=== PATIENT | female | born 1970 | race Caucasian/White ===

== ENCOUNTER → 2018-02-17 15:10 | Outpatient (CLI) | payer BC, SELFPAY ==
[2018-02-17 18:33] LABS: Absolute Lymphocyte Count 2.59 X10^3/ul (0.83-4.51); Absolute Neutrophil Count 5.1 X10^3/uL (2.0-7.7); Basophil# 0.07 X10^3/uL; Basophil% 0.8 % (0-1); Eosinophil# 0.35 X10^3/uL; Hematocrit 41.3 % (37-47); Hemoglobin 14.3 g/dl (12.0-15.0); Lymphocyte # 2.59 X10^3/ul (4.0); Lymphocyte % 29.8 % (19-41); Mean Corp Hgb Conc 34.6 g/gl (32-36); Mean Corpuscular Hgb 28.6 pg (27.0-32.0); Mean Corpuscular Volume 82.6 fL (81-99); Mean Platelet Vol. 10.9 fl (6.2-12.0); Monocyte# 0.53 X10^3/uL; Monocyte% 6.1 % (0-10); Neutrophil # 5.14 X10^3/uL (2.7-7.7); Neutrophil % 59.1 % (47-70); Platelet Count 280 K/mm3 (150-450); RBC Distribution Width CV 13.8 % (11.6-14.6); RBC Distribution Width SD 41.2 fl (35.1-43.9); White Blood Count 8.7 K/mm3 (4.4-11.0)
[2018-02-17 18:34] LABS: ALB/GLOB Ratio 1.3 RATIO (0.9-2.4); AST(SGOT) 21 U/L (15-37); Alanine Aminotransfer ALT/SGPT 39 U/L (13-56); Albumin, Serum 4.1 g/dL (3.2-5.0); Alkaline Phosphatase 55 U/L (45-117); Anion Gap 6 (5-15); BUN 16 mg/dL (7-18); BUN/Creat Ratio 20.8 RATIO (10-20); Calcium,Total 8.8 mg/dL (8.5-10.1); Chloride 105 mmol/L (98-107); Creatinine, Serum 0.77 mg/dL (0.55-1.02); EST Glomerular Filtration Rate 84 mL/min (>60); Est Glom Filt Rate - Afr Amer 102 mL/min (>60); Globulin 3.2 g/dL (2.2-4.2); Glucose 91 mg/dL (74-106); Protein, Total 7.3 g/dL (6.4-8.2); Sodium Level 142 mmol/L (136-145)
[2018-02-17 18:52] LABS: POSITIVE COUNT NO; POSITIVE DIFFERENTIAL NO; POSITIVE MORPHOLOGY NO
== END ==
PROVIDERS: Family Provider Pediatrics; PCP Pediatrics; Visit Provider Internal Medicine Rheumatology
DX: M06.4 Inflammatory polyarthropathy (principal); M32.9 Systemic lupus erythematosus, unspecified; Z79.899 Other long term (current) drug therapy; M79.7 Fibromyalgia; M72.2 Plantar fascial fibromatosis; K22.70 Barrett's esophagus without dysplasia; G43.809 Other migraine, not intractable, without status migrainosus; N80.9 Endometriosis, unspecified
CPT/HCPCS: 36415; 80053; 85025

== ENCOUNTER → 2018-12-14 10:52 | Outpatient (CLI) | payer BC, SELFPAY ==
[2018-12-14 12:23] LABS: Color, Urine Yellow (Yellow); Glucose, Dipstick Normal (Normal); Ketone-Dipstick Negative (Negative); Leukocyte Esterase-Dipstick Negative /ul (Negative); Nitrite-Dipstick Negative (Negative); Occult Blood-Urine Negative /ul (Negative); Protein-Dipstick Negative (Negative); Urine Bilirubin Dipstick Negative (Negative); Urine Clarity Sl. Cloudy (Clear); Urine Urobilinogen Normal (Normal); Urine pH 6.5 (5.0 - 8.0)
[2018-12-14 12:51] LABS: Protein, Urine (Random) < 6.0 mg/dL (<11.9)
[2018-12-15 10:44] LABS: Complement C3 152 mg/dL (82-167)
[2018-12-16 13:00] LABS: Anti-dsDNA Ab 2 IU/mL (0-9)
== END ==
PROVIDERS: Family Provider Pediatrics; PCP Pediatrics; Referring Provider Internal Medicine Rheumatology; Visit Provider Internal Medicine Rheumatology
DX: M06.4 Inflammatory polyarthropathy (principal); M32.9 Systemic lupus erythematosus, unspecified; M79.7 Fibromyalgia; M72.2 Plantar fascial fibromatosis; K22.70 Barrett's esophagus without dysplasia; G43.809 Other migraine, not intractable, without status migrainosus; N80.9 Endometriosis, unspecified; Z79.899 Other long term (current) drug therapy
CPT/HCPCS: 36415; 81002; 82570; 84156; 86160; 86225

== ENCOUNTER → 2019-02-14 | Outpatient (CLI) | payer BC, SELFPAY ==
[2019-02-14 13:50] LABS: Absolute Lymphocyte Count 2.43 X10^3/ul (0.83-4.51); Absolute Neutrophil Count 5.8 X10^3/uL (2.0-7.7); Basophil# 0.07 X10^3/uL; Basophil% 0.8 % (0-1); Eosinophil# 0.28 X10^3/uL; Eosinophils% 3.1 % (0-5); Hematocrit 44.5 % (37-47); Hemoglobin 15.4 g/dl (12.0-15.0); Lymphocyte # 2.43 X10^3/ul (4.0); Lymphocyte % 26.5 % (19-41); Mean Corp Hgb Conc 34.6 g/gl (32-36); Mean Corpuscular Hgb 27.9 pg (27.0-32.0); Mean Corpuscular Volume 80.8 fL (81-99); Mean Platelet Vol. 9.9 fl (6.2-12.0); Monocyte# 0.57 X10^3/uL; Monocyte% 6.2 % (0-10); Neutrophil # 5.79 X10^3/uL (2.7-7.7); Neutrophil % 63.2 % (47-70); Platelet Count 308 K/mm3 (150-450); RBC Distribution Width CV 13.3 % (11.6-14.6); RBC Distribution Width SD 38.9 fl (35.1-43.9); Red Blood Count 5.51 M/mm3 (4.2-5.4); White Blood Count 9.2 K/mm3 (4.4-11.0)
[2019-02-14 13:51] LABS: POSITIVE COUNT NO; POSITIVE DIFFERENTIAL NO; POSITIVE MORPHOLOGY NO
[2019-02-14 14:14] LABS: ALB/GLOB Ratio 1.2 RATIO (0.9-2.4); AST(SGOT) 23 U/L (15-37); Alanine Aminotransfer ALT/SGPT 38 U/L (13-56); Albumin, Serum 4.2 g/dL (3.2-5.0); Alkaline Phosphatase 59 U/L (45-117); Anion Gap 7 (5-15); BUN 21 mg/dL (7-18); BUN/Creat Ratio 22.2 RATIO (10-20); Calcium,Total 9.8 mg/dL (8.5-10.1); Chloride 103 mmol/L (98-107); Creatinine, Serum 0.94 mg/dL (0.55-1.02); EST Glomerular Filtration Rate 66 mL/min (>60); Est Glom Filt Rate - Afr Amer 80 mL/min (>60); Globulin 3.5 g/dL (2.2-4.2); Glucose 105 mg/dL (74-106); Potassium 3.8 mmol/L (3.5-5.1); Protein, Total 7.7 g/dL (6.4-8.2); Sodium Level 142 mmol/L (136-145)
== END | disposition home or self-care (01) ==
LOC: MTLAB 12:51
PROVIDERS: Family Provider Pediatrics; PCP Pediatrics; Referring Provider Internal Medicine Rheumatology; Visit Provider Internal Medicine Rheumatology
DX: M06.4 Inflammatory polyarthropathy (principal); M32.9 Systemic lupus erythematosus, unspecified; Z79.899 Other long term (current) drug therapy; M79.7 Fibromyalgia; M72.2 Plantar fascial fibromatosis; K22.70 Barrett's esophagus without dysplasia; G43.809 Other migraine, not intractable, without status migrainosus; N80.9 Endometriosis, unspecified
CPT/HCPCS: 36415; 80053; 85025

== ENCOUNTER → 2019-06-06 | Outpatient (CLI) | payer BC, SELFPAY ==
[2019-06-06 14:04] LABS: Absolute Lymphocyte Count 2.37 X10^3/uL (0.83-4.51); Absolute Neutrophil Count 5.3 X10^3/uL (2.0-7.7); Basophil# 0.07 X10^3/uL; Basophil% 0.8 % (0-1); Eosinophil# 0.33 X10^3/uL; Eosinophils% 3.8 % (0-5); Hematocrit 44.3 % (37-47); Hemoglobin 14.9 g/dL (12.0-15.0); Lymphocyte # 2.37 X10^3/ul (4.0); Lymphocyte % 27.1 % (19-41); Mean Corp Hgb Conc 33.6 g/dL (32-36); Mean Corpuscular Hgb 28.2 pg (27.0-32.0); Mean Corpuscular Volume 83.7 fL (81-99); Monocyte# 0.69 X10^3/uL; Monocyte% 7.9 % (0-10); NRBC Flagged by Analyzer 0 % (0-5); Neutrophil # 5.27 X10^3/uL (2.7-7.7); Neutrophil % 60.1 % (47-70); Platelet Count 297 K/mm3 (150-450); RBC Distribution Width CV 12.7 % (11.6-14.6); RBC Distribution Width SD 38.5 fl (35.1-43.9); Red Blood Count 5.29 M/mm3 (4.2-5.4); White Blood Count 8.8 K/mm3 (4.4-11.0)
[2019-06-06 14:37] LABS: ALB/GLOB Ratio 1.1 RATIO (0.9-2.4); AST(SGOT) 18 U/L (15-37); Alanine Aminotransfer ALT/SGPT 33 U/L (13-56); Alkaline Phosphatase 56 U/L (45-117); Anion Gap 5 (5-15); BUN 16 mg/dL (7-18); BUN/Creat Ratio 17.9 RATIO (10-20); Calcium,Total 8.9 mg/dL (8.5-10.1); Chloride 108 mmol/L (98-107); Creatinine, Serum 0.89 mg/dL (0.55-1.02); EST Glomerular Filtration Rate 71 mL/min (>60); Est Glom Filt Rate - Afr Amer 86 mL/min (>60); Globulin 3.6 g/dL (2.2-4.2); Glucose 89 mg/dL (74-106); Potassium 3.9 mmol/L (3.5-5.1); Protein, Total 7.6 g/dL (6.4-8.2); Sodium Level 143 mmol/L (136-145)
== END | disposition home or self-care (01) ==
LOC: MTLAB 12:49
PROVIDERS: Family Provider Pediatrics; PCP Pediatrics; Referring Provider Internal Medicine Rheumatology; Visit Provider Internal Medicine Rheumatology
DX: M06.4 Inflammatory polyarthropathy (principal); M32.9 Systemic lupus erythematosus, unspecified; Z79.899 Other long term (current) drug therapy; M79.7 Fibromyalgia; M72.2 Plantar fascial fibromatosis; K22.70 Barrett's esophagus without dysplasia; G43.809 Other migraine, not intractable, without status migrainosus; N80.9 Endometriosis, unspecified
CPT/HCPCS: 36415; 80053; 85025

== ENCOUNTER → 2020-02-07 12:01 | Outpatient (CLI) | payer BC, SELFPAY ==
[2020-02-07 15:37] LABS: Absolute Lymphocyte Count 2.27 X10^3/uL (0.83-4.51); Absolute Neutrophil Count 4.2 X10^3/uL (2.0-7.7); Basophil# 0.09 X10^3/uL; Basophil% 1.2 % (0-1); Eosinophil# 0.33 X10^3/uL; Eosinophils% 4.4 % (0-5); Hematocrit 42.8 % (37-47); Hemoglobin 14.1 g/dL (12.0-15.0); Lymphocyte # 2.27 X10^3/ul (4.0); Lymphocyte % 30.1 % (19-41); Mean Corp Hgb Conc 32.9 g/dL (32-36); Mean Corpuscular Volume 81.8 fL (81-99); Mean Platelet Vol. 10.6 fl (6.2-12.0); Monocyte# 0.63 X10^3/uL; Monocyte% 8.3 % (0-10); NRBC Flagged by Analyzer 0 % (0-5); Neutrophil # 4.21 X10^3/uL (2.7-7.7); Neutrophil % 55.7 % (47-70); Platelet Count 284 K/mm3 (150-450); RBC Distribution Width CV 13.5 % (11.6-14.6); RBC Distribution Width SD 40.2 fl (35.1-43.9); Red Blood Count 5.23 M/mm3 (4.2-5.4); White Blood Count 7.6 K/mm3 (4.4-11.0)
[2020-02-07 15:45] LABS: ALB/GLOB Ratio 1.1 RATIO (0.9-2.4); AST(SGOT) 17 U/L (15-37); Alanine Aminotransfer ALT/SGPT 34 U/L (13-56); Albumin, Serum 3.8 g/dL (3.2-5.0); Alkaline Phosphatase 55 U/L (45-117); Anion Gap 2 (5-15); BUN 16 mg/dL (7-18); Calcium,Total 8.9 mg/dL (8.5-10.1); Chloride 105 mmol/L (98-107); Creatinine, Serum 0.84 mg/dL (0.55-1.02); EST Glomerular Filtration Rate 75 mL/min (>60); Est Glom Filt Rate - Afr Amer 91 mL/min (>60); Globulin 3.5 g/dL (2.2-4.2); Glucose 70 mg/dL (74-106); Potassium 4.1 mmol/L (3.5-5.1); Protein, Total 7.3 g/dL (6.4-8.2); Sodium Level 139 mmol/L (136-145)
== END ==
PROVIDERS: PCP Pediatrics; Referring Provider Internal Medicine Rheumatology; Visit Provider Internal Medicine Rheumatology
DX: M06.4 Inflammatory polyarthropathy (principal); M32.9 Systemic lupus erythematosus, unspecified; Z79.899 Other long term (current) drug therapy; M79.7 Fibromyalgia; M72.2 Plantar fascial fibromatosis; K22.70 Barrett's esophagus without dysplasia; G43.809 Other migraine, not intractable, without status migrainosus; N80.9 Endometriosis, unspecified
CPT/HCPCS: 36415; 80053; 85025

== ENCOUNTER → 2020-05-24 09:48 | Outpatient (CLI) | payer BC, SELFPAY ==
[2020-05-24 12:31] LABS: Color, Urine Straw (Yellow); Glucose, Dipstick Normal (Normal); Ketone-Dipstick Negative (Negative); Leukocyte Esterase-Dipstick Negative /ul (Negative); Nitrite-Dipstick Negative (Negative); Occult Blood-Urine Negative /ul (Negative); Protein-Dipstick Negative (Negative); Specific Gravity, Urine 1.005 (1.002-1.030); Urine Bilirubin Dipstick Negative (Negative); Urine Clarity Clear (Clear); Urine Urobilinogen Normal (Normal)
[2020-05-24 12:34] LABS: Absolute Lymphocyte Count 2.33 X10^3/uL (0.83-4.51); Absolute Neutrophil Count 4.7 X10^3/uL (2.0-7.7); Basophil# 0.08 X10^3/uL; Eosinophil# 0.32 X10^3/uL; Eosinophils% 3.9 % (0-5); Hematocrit 43.5 % (37-47); Hemoglobin 14.2 g/dL (12.0-15.0); Lymphocyte # 2.33 X10^3/ul (4.0); Lymphocyte % 28.7 % (19-41); Mean Corp Hgb Conc 32.6 g/dL (32-36); Mean Corpuscular Hgb 27.6 pg (27.0-32.0); Mean Corpuscular Volume 84.5 fL (81-99); Mean Platelet Vol. 9.9 fl (6.2-12.0); Monocyte# 0.66 X10^3/uL; Monocyte% 8.1 % (0-10); NRBC Flagged by Analyzer 0 % (0-5); Neutrophil % 57.8 % (47-70); Platelet Count 307 K/mm3 (150-450); RBC Distribution Width CV 12.8 % (11.6-14.6); RBC Distribution Width SD 39.5 fl (35.1-43.9); Red Blood Count 5.15 M/mm3 (4.2-5.4); White Blood Count 8.1 K/mm3 (4.4-11.0)
[2020-05-24 13:01] LABS: ALB/GLOB Ratio 1.1 RATIO (0.9-2.4); AST(SGOT) 19 U/L (15-37); Alanine Aminotransfer ALT/SGPT 33 U/L (13-56); Alkaline Phosphatase 61 U/L (45-117); Anion Gap 4 (5-15); BUN 14 mg/dL (7-18); BUN/Creat Ratio 15.9 RATIO (10-20); Calcium,Total 8.9 mg/dL (8.5-10.1); Chloride 104 mmol/L (98-107); Creatinine, Serum 0.88 mg/dL (0.55-1.02); EST Glomerular Filtration Rate 72 mL/min (>60); Est Glom Filt Rate - Afr Amer 87 mL/min (>60); Globulin 3.6 g/dL (2.2-4.2); Glucose 60 mg/dL (74-106); Potassium 3.9 mmol/L (3.5-5.1); Protein, Total 7.6 g/dL (6.4-8.2); Sodium Level 141 mmol/L (136-145)
[2020-05-24 13:54] LABS: Protein, Urine (Random) < 6.0 mg/dL (<11.9)
== END ==
PROVIDERS: PCP Pediatrics; Referring Provider Internal Medicine Rheumatology; Visit Provider Internal Medicine Rheumatology
DX: M06.4 Inflammatory polyarthropathy (principal); M32.9 Systemic lupus erythematosus, unspecified; Z79.899 Other long term (current) drug therapy; M79.7 Fibromyalgia; M72.2 Plantar fascial fibromatosis; K22.70 Barrett's esophagus without dysplasia; G43.809 Other migraine, not intractable, without status migrainosus; N80.9 Endometriosis, unspecified
CPT/HCPCS: 36415; 80053; 81002; 82570; 84156; 85025

== ENCOUNTER → 2020-08-16 10:06 | Outpatient (CLI) | payer BC, SELFPAY ==
[2020-08-16 12:20] LABS: Absolute Lymphocyte Count 1.66 X10^3/uL (0.83-4.51); Absolute Neutrophil Count 3.6 X10^3/uL (2.0-7.7); Basophil# 0.05 X10^3/uL; Basophil% 0.8 % (0-1); Eosinophil# 0.34 X10^3/uL; Eosinophils% 5.4 % (0-5); Hematocrit 42.8 % (37-47); Hemoglobin 14.3 g/dL (12.0-15.0); Lymphocyte # 1.66 X10^3/ul (4.0); Lymphocyte % 26.6 % (19-41); Mean Corp Hgb Conc 33.4 g/dL (32-36); Mean Corpuscular Volume 83.8 fL (81-99); Mean Platelet Vol. 10.1 fl (6.2-12.0); NRBC Flagged by Analyzer 0 % (0-5); Neutrophil % 57.8 % (47-70); Platelet Count 280 K/mm3 (150-450); RBC Distribution Width CV 12.9 % (11.6-14.6); RBC Distribution Width SD 39.3 fl (35.1-43.9); Red Blood Count 5.11 M/mm3 (4.2-5.4); White Blood Count 6.2 K/mm3 (4.4-11.0)
[2020-08-16 12:32] LABS: T3 Total - Triiodothyronine 1.15 ng/mL (0.6-1.81); Vitamin D,25 Hydroxy 32.5 ng/mL
[2020-08-16 12:35] LABS: AST(SGOT) 15 U/L (15-37); Alanine Aminotransfer ALT/SGPT 30 U/L (13-56); Albumin, Serum 3.9 g/dL (3.2-5.0); Alkaline Phosphatase 63 U/L (45-117); Bilirubin, Direct 0.13 mg/dL (0.00-0.30); Cholesterol 211 mg/dL (200); Globulin 3.5 g/dL (2.2-4.2); High Density Lipoprotein 53 mg/dL; Protein, Total 7.4 g/dL (6.4-8.2); T4 Free Direct 0.91 ng/dL (0.76-1.46); Thyroid Stim Hormone (TSH) 2.81 uIU/mL (0.358-3.74); Triglycerides 61 mg/dL; Very Low Density Lipoprotein 12 mg/dL (5-40)
== END ==
PROVIDERS: PCP Pediatrics; Referring Provider Pediatrics; Visit Provider Pediatrics
DX: Z00.00 Encounter for general adult medical examination without abnormal findings (principal); E03.9 Hypothyroidism, unspecified; E55.9 Vitamin D deficiency, unspecified; E78.5 Hyperlipidemia, unspecified; M06.4 Inflammatory polyarthropathy; M32.9 Systemic lupus erythematosus, unspecified; Z79.899 Other long term (current) drug therapy; M79.7 Fibromyalgia; M72.2 Plantar fascial fibromatosis; K22.70 Barrett's esophagus without dysplasia; G43.809 Other migraine, not intractable, without status migrainosus; N80.9 Endometriosis, unspecified
CPT/HCPCS: 80061; 80076; 82306; 84439; 84443; 84480; 85025

== ENCOUNTER → 2020-11-25 12:42 | Outpatient (CLI) | payer BC, SELFPAY ==
[2020-11-25 15:13] LABS: Absolute Lymphocyte Count 2.79 X10^3/uL (0.83-4.51); Absolute Neutrophil Count 4.3 X10^3/uL (2.0-7.7); Basophil# 0.11 X10^3/uL; Basophil% 1.3 % (0-1); Eosinophil# 0.63 X10^3/uL; Eosinophils% 7.4 % (0-5); Hematocrit 43.7 % (37-47); Hemoglobin 14.7 g/dL (12.0-15.0); Lymphocyte # 2.79 X10^3/ul (4.0); Lymphocyte % 32.7 % (19-41); Mean Corp Hgb Conc 33.6 g/dL (32-36); Mean Corpuscular Hgb 27.7 pg (27.0-32.0); Mean Corpuscular Volume 82.5 fL (81-99); Mean Platelet Vol. 10.2 fl (6.2-12.0); Monocyte# 0.65 X10^3/uL; Monocyte% 7.6 % (0-10); NRBC Flagged by Analyzer 0 % (0-5); Neutrophil # 4.31 X10^3/uL (2.7-7.7); Neutrophil % 50.6 % (47-70); Platelet Count 322 K/mm3 (150-450); RBC Distribution Width CV 12.9 % (11.6-14.6); RBC Distribution Width SD 38.7 fl (35.1-43.9); White Blood Count 8.5 K/mm3 (4.4-11.0)
[2020-11-25 15:17] LABS: Color, Urine Yellow (Yellow); Glucose, Dipstick Normal (Normal); Ketone-Dipstick Negative (Negative); Leukocyte Esterase-Dipstick Negative /ul (Negative); Nitrite-Dipstick Negative (Negative); Occult Blood-Urine Negative /ul (Negative); Protein-Dipstick Negative (Negative); Specific Gravity, Urine 1.005 (1.002-1.030); Urine Bilirubin Dipstick Negative (Negative); Urine Clarity Sl. Cloudy (Clear); Urine Urobilinogen Normal (Normal); Urine pH 6.5 (5.0 - 8.0)
[2020-11-25 15:42] LABS: Protein, Urine (Random) < 6.0 mg/dL (<11.9)
[2020-11-25 15:45] LABS: ALB/GLOB Ratio 1.1 RATIO (0.9-2.4); AST(SGOT) 22 U/L (15-37); Alanine Aminotransfer ALT/SGPT 41 U/L (13-56); Alkaline Phosphatase 75 U/L (45-117); Anion Gap 5 (5-15); BUN 15 mg/dL (7-18); BUN/Creat Ratio 16.8 RATIO (10-20); Calcium,Total 9.1 mg/dL (8.5-10.1); Chloride 103 mmol/L (98-107); Creatinine, Serum 0.89 mg/dL (0.55-1.02); EST Glomerular Filtration Rate 70 mL/min (>60); Est Glom Filt Rate - Afr Amer 85 mL/min (>60); Globulin 3.7 g/dL (2.2-4.2); Glucose 85 mg/dL (74-106); Protein, Total 7.7 g/dL (6.4-8.2); Sodium Level 140 mmol/L (136-145)
== END ==
PROVIDERS: PCP Pediatrics; Referring Provider Internal Medicine Rheumatology; Visit Provider Internal Medicine Rheumatology
DX: M06.4 Inflammatory polyarthropathy (principal); M32.9 Systemic lupus erythematosus, unspecified; Z79.899 Other long term (current) drug therapy; M79.7 Fibromyalgia; M72.2 Plantar fascial fibromatosis; K22.70 Barrett's esophagus without dysplasia; G43.809 Other migraine, not intractable, without status migrainosus; N80.9 Endometriosis, unspecified
CPT/HCPCS: 36415; 80053; 81002; 82570; 84156; 85025

== ENCOUNTER → 2021-05-20 16:50 | Outpatient (CLI) | payer BC, SELFPAY ==
[2021-05-20 17:51] LABS: Absolute Neutrophil Count 5.4 X10^3/uL (2.0-7.7); Basophil# 0.09 X10^3/uL; Basophil% 0.9 % (0-1); Eosinophil# 0.44 X10^3/uL; Eosinophils% 4.3 % (0-5); Hematocrit 43.3 % (37-47); Hemoglobin 14.3 g/dL (12.0-15.0); Lymphocyte % 33.5 % (19-41); Mean Corpuscular Hgb 27.4 pg (27.0-32.0); Mean Platelet Vol. 9.8 fl (6.2-12.0); Monocyte# 0.76 X10^3/uL; Monocyte% 7.5 % (0-10); NRBC Flagged by Analyzer 0 % (0-5); Neutrophil # 5.41 X10^3/uL (2.7-7.7); Neutrophil % 53.4 % (47-70); Platelet Count 316 K/mm3 (150-450); RBC Distribution Width CV 13.2 % (11.6-14.6); RBC Distribution Width SD 39.6 fl (35.1-43.9); Red Blood Count 5.22 M/mm3 (4.2-5.4); White Blood Count 10.1 K/mm3 (4.4-11.0)
[2021-05-20 17:53] LABS: Color, Urine Yellow (Yellow); Glucose, Dipstick Normal (Normal); Ketone-Dipstick Negative (Negative); Leukocyte Esterase-Dipstick Negative /ul (Negative); Nitrite-Dipstick Negative (Negative); Occult Blood-Urine Negative /ul (Negative); Protein-Dipstick Negative (Negative); Urine Bilirubin Dipstick Negative (Negative); Urine Clarity Clear (Clear); Urine Urobilinogen Normal (Normal)
[2021-05-20 18:15] LABS: Protein, Urine (Random) < 6.0 mg/dL (<11.9)
[2021-05-20 18:56] LABS: ALB/GLOB Ratio 1.2 RATIO (0.9-2.4); AST(SGOT) 25 U/L (15-37); Alanine Aminotransfer ALT/SGPT 60 U/L (13-56); Albumin, Serum 3.9 g/dL (3.2-5.0); Alkaline Phosphatase 60 U/L (45-117); Anion Gap 8 (5-15); BUN 16 mg/dL (7-18); BUN/Creat Ratio 18.5 RATIO (10-20); Calcium,Total 8.7 mg/dL (8.5-10.1); Chloride 103 mmol/L (98-107); Creatinine, Serum 0.86 mg/dL (0.55-1.02); EST Glomerular Filtration Rate 73 mL/min (>60); Est Glom Filt Rate - Afr Amer 88 mL/min (>60); Globulin 3.3 g/dL (2.2-4.2); Glucose 101 mg/dL (74-106); Potassium 3.6 mmol/L (3.5-5.1); Protein, Total 7.2 g/dL (6.4-8.2); Sodium Level 140 mmol/L (136-145)
== END ==
PROVIDERS: PCP Pediatrics; Referring Provider Internal Medicine Rheumatology; Visit Provider Internal Medicine Rheumatology
DX: M06.4 Inflammatory polyarthropathy (principal); M32.9 Systemic lupus erythematosus, unspecified; Z79.899 Other long term (current) drug therapy; M79.7 Fibromyalgia; M72.2 Plantar fascial fibromatosis; K22.70 Barrett's esophagus without dysplasia; G43.809 Other migraine, not intractable, without status migrainosus; N80.9 Endometriosis, unspecified
CPT/HCPCS: 36415; 80053; 81002; 82570; 84156; 85025

== ENCOUNTER → 2021-08-11 16:27 | Outpatient (CLI) | payer BC, SELFPAY ==
[2021-08-11 17:38] LABS: Color, Urine Yellow (Yellow); Glucose, Dipstick Normal (Normal); Ketone-Dipstick Negative (Negative); Leukocyte Esterase-Dipstick 25 /ul (Negative); Nitrite-Dipstick Negative (Negative); Occult Blood-Urine Negative /ul (Negative); Protein-Dipstick Negative (Negative); Urine Bilirubin Dipstick Negative (Negative); Urine Clarity Clear (Clear); Urine Urobilinogen Normal (Normal)
[2021-08-11 17:42] LABS: Absolute Neutrophil Count 4.7 X10^3/uL (2.0-7.7); Basophil# 0.11 X10^3/uL; Basophil% 1.2 % (0-1); Eosinophil# 0.44 X10^3/uL; Eosinophils% 4.8 % (0-5); Hematocrit 41.3 % (37-47); Lymphocyte % 35.2 % (19-41); Mean Corp Hgb Conc 33.9 g/dL (32-36); Mean Corpuscular Hgb 27.7 pg (27.0-32.0); Mean Corpuscular Volume 81.6 fL (81-99); Mean Platelet Vol. 9.9 fl (6.2-12.0); Monocyte# 0.66 X10^3/uL; Monocyte% 7.3 % (0-10); NRBC Flagged by Analyzer 0 % (0-5); Neutrophil # 4.65 X10^3/uL (2.7-7.7); Neutrophil % 51.2 % (47-70); Platelet Count 298 K/mm3 (150-450); RBC Distribution Width CV 13.3 % (11.6-14.6); RBC Distribution Width SD 39.5 fl (35.1-43.9); Red Blood Count 5.06 M/mm3 (4.2-5.4); White Blood Count 9.1 K/mm3 (4.4-11.0)
[2021-08-11 18:08] LABS: AST(SGOT) 17 U/L (15-37); Alanine Aminotransfer ALT/SGPT 41 U/L (13-56); Albumin, Serum 3.8 g/dL (3.2-5.0); Alkaline Phosphatase 66 U/L (45-117); Anion Gap 7 (5-15); BUN 25 mg/dL (7-18); BUN/Creat Ratio 28.4 RATIO (10-20); Calcium,Total 8.9 mg/dL (8.5-10.1); Chloride 103 mmol/L (98-107); Creatinine, Serum 0.88 mg/dL (0.55-1.02); EST Glomerular Filtration Rate 71 mL/min (>60); Est Glom Filt Rate - Afr Amer 86 mL/min (>60); Globulin 3.7 g/dL (2.2-4.2); Glucose 77 mg/dL (74-106); Potassium 3.9 mmol/L (3.5-5.1); Protein, Total 7.5 g/dL (6.4-8.2); Sodium Level 138 mmol/L (136-145)
[2021-08-11 18:09] LABS: Creatinine, Urine (random) < 13.00 mg/dL (NO RANGE EST.); Protein, Urine (Random) < 6.0 mg/dL (<11.9)
== END ==
PROVIDERS: PCP Pediatrics; Referring Provider Internal Medicine Rheumatology; Visit Provider Internal Medicine Rheumatology
DX: M06.4 Inflammatory polyarthropathy (principal); M32.9 Systemic lupus erythematosus, unspecified; Z79.899 Other long term (current) drug therapy; M79.7 Fibromyalgia; M72.2 Plantar fascial fibromatosis; K22.70 Barrett's esophagus without dysplasia; G43.809 Other migraine, not intractable, without status migrainosus; N80.9 Endometriosis, unspecified
CPT/HCPCS: 36415; 80053; 81002; 82570; 84156; 85025

== ENCOUNTER → 2022-06-04 | Outpatient (CLI) | payer BC, SELFPAY ==
[2022-06-04 15:02] LABS: Absolute Lymphocyte Count 2.67 X10^3/uL (0.83-4.51); Absolute Neutrophil Count 5.9 X10^3/uL (2.0-7.7); Basophil# 0.07 X10^3/uL; Basophil% 0.7 % (0-1); Eosinophil# 0.25 X10^3/uL; Eosinophils% 2.6 % (0-5); Hemoglobin 15.1 g/dL (12.0-15.0); Lymphocyte # 2.67 X10^3/ul (0.83-4.51); Lymphocyte % 28.1 % (19-41); Mean Corp Hgb Conc 32.8 g/dL (32-36); Mean Corpuscular Hgb 27.3 pg (27.0-32.0); Mean Corpuscular Volume 83.2 fL (81-99); Mean Platelet Vol. 10.1 fl (6.2-12.0); Monocyte# 0.62 X10^3/uL; Monocyte% 6.5 % (0-10); NRBC Flagged by Analyzer 0 % (0-5); Neutrophil # 5.86 X10^3/uL (2.7-7.7); Neutrophil % 61.7 % (47-70); Platelet Count 319 K/mm3 (150-450); RBC Distribution Width CV 13.2 % (11.6-14.6); RBC Distribution Width SD 39.8 fl (35.1-43.9); Red Blood Count 5.53 M/mm3 (4.2-5.4); White Blood Count 9.5 K/mm3 (4.4-11.0)
[2022-06-04 15:21] LABS: ALB/GLOB Ratio 1.1 RATIO (0.9-2.4); AST(SGOT) 25 U/L (15-37); Alanine Aminotransfer ALT/SGPT 54 U/L (13-56); Albumin, Serum 4.1 g/dL (3.2-5.0); Alkaline Phosphatase 66 U/L (45-117); Anion Gap 7 (5-15); BUN 25 mg/dL (7-18); BUN/Creat Ratio 30.9 RATIO (10-20); Calcium,Total 9.2 mg/dL (8.5-10.1); Chloride 105 mmol/L (98-107); Creatinine, Serum 0.81 mg/dL (0.55-1.02); EST Glomerular Filtration Rate 79 mL/min (>60); Est Glom Filt Rate - Afr Amer 95 mL/min (>60); Globulin 3.9 g/dL (2.2-4.2); Glucose 68 mg/dL (74-106); Potassium 3.7 mmol/L (3.5-5.1); Sodium Level 140 mmol/L (136-145)
== END | disposition home or self-care (01) ==
LOC: MTLAB 11:37
PROVIDERS: PCP Pediatrics; Referring Provider Internal Medicine Rheumatology; Visit Provider Internal Medicine Rheumatology
DX: M06.4 Inflammatory polyarthropathy (principal); M32.9 Systemic lupus erythematosus, unspecified; Z79.899 Other long term (current) drug therapy; M79.7 Fibromyalgia; M72.2 Plantar fascial fibromatosis; K22.70 Barrett's esophagus without dysplasia; G43.809 Other migraine, not intractable, without status migrainosus; N80.9 Endometriosis, unspecified
CPT/HCPCS: 36415; 80053; 85025

== ENCOUNTER → 2022-06-10 | Outpatient (CLI) | payer BC, SELFPAY ==
[2022-06-10 15:58] LABS: EXAGEN MAILED SPECIMEN
[2022-06-10 18:08] LABS: Color, Urine Straw (Yellow); Glucose, Dipstick Normal (Normal); Ketone-Dipstick Negative (Negative); Leukocyte Esterase-Dipstick 100 /ul (Negative); Nitrite-Dipstick Negative (Negative); Occult Blood-Urine Negative /ul (Negative); Protein-Dipstick Negative (Negative); Specific Gravity, Urine 1.005 (1.002-1.030); Urine Bilirubin Dipstick Negative (Negative); Urine Clarity Clear (Clear); Urine Urobilinogen Normal (Normal)
[2022-06-10 18:27] LABS: Creatinine, Urine (random) < 13.00 mg/dL (NO RANGE EST.); Protein, Urine (Random) < 6.0 mg/dL (<11.9)
== END | disposition home or self-care (01) ==
LOC: MTLAB 14:55
PROVIDERS: PCP Pediatrics; Referring Provider Internal Medicine Rheumatology; Visit Provider Internal Medicine Rheumatology
DX: M06.4 Inflammatory polyarthropathy (principal); M32.9 Systemic lupus erythematosus, unspecified; Z79.899 Other long term (current) drug therapy; M79.7 Fibromyalgia; M72.2 Plantar fascial fibromatosis; K22.70 Barrett's esophagus without dysplasia; G43.809 Other migraine, not intractable, without status migrainosus; N80.9 Endometriosis, unspecified
CPT/HCPCS: 81002; 82570; 84156

== ENCOUNTER → 2022-09-04 | Outpatient (CLI) | payer BC, SELFPAY ==
[2022-09-04 14:55] LABS: Absolute Lymphocyte Count 2.27 X10^3/uL (0.83-4.51); Absolute Neutrophil Count 4.6 X10^3/uL (2.0-7.7); Basophil# 0.09 X10^3/uL; Basophil% 1.1 % (0-1); Eosinophil# 0.28 X10^3/uL; Eosinophils% 3.6 % (0-5); Hematocrit 43.4 % (37-47); Hemoglobin 14.4 g/dL (12.0-15.0); Lymphocyte # 2.27 X10^3/ul (0.83-4.51); Lymphocyte % 28.9 % (19-41); Mean Corp Hgb Conc 33.2 g/dL (32-36); Mean Corpuscular Volume 84.4 fL (81-99); Mean Platelet Vol. 9.9 fl (6.2-12.0); Monocyte# 0.63 X10^3/uL; NRBC Flagged by Analyzer 0 % (0-5); Neutrophil # 4.55 X10^3/uL (2.7-7.7); Platelet Count 315 K/mm3 (150-450); RBC Distribution Width CV 12.9 % (11.6-14.6); RBC Distribution Width SD 39.6 fl (35.1-43.9); Red Blood Count 5.14 M/mm3 (4.2-5.4); White Blood Count 7.9 K/mm3 (4.4-11.0)
[2022-09-04 15:05] LABS: ALB/GLOB Ratio 1.3 RATIO (0.9-2.4); AST(SGOT) 19 U/L (15-37); Alanine Aminotransfer ALT/SGPT 34 U/L (13-56); Alkaline Phosphatase 58 U/L (45-117); Anion Gap 3 (5-15); BUN 17 mg/dL (7-18); BUN/Creat Ratio 20.9 RATIO (10-20); Chloride 106 mmol/L (98-107); Creatinine, Serum 0.81 mg/dL (0.55-1.02); EST Glomerular Filtration Rate 78 mL/min (>60); Est Glom Filt Rate - Afr Amer 94 mL/min (>60); Globulin 3.1 g/dL (2.2-4.2); Glucose 66 mg/dL (74-106); Potassium 4.6 mmol/L (3.5-5.1); Protein, Total 7.1 g/dL (6.4-8.2); Sodium Level 140 mmol/L (136-145)
== END | disposition home or self-care (01) ==
LOC: MTLAB 11:40
PROVIDERS: PCP Pediatrics; Referring Provider Internal Medicine Rheumatology; Visit Provider Internal Medicine Rheumatology
DX: M06.4 Inflammatory polyarthropathy (principal); M32.9 Systemic lupus erythematosus, unspecified; Z79.899 Other long term (current) drug therapy
CPT/HCPCS: 36415; 80053; 85025

== ENCOUNTER → 2022-11-06 | Outpatient (CLI) | payer BC, SELFPAY ==
[2022-11-06 16:02] LABS: ALB/GLOB Ratio 1.2 RATIO (0.9-2.4); AST(SGOT) 22 U/L (15-37); Alanine Aminotransfer ALT/SGPT 39 U/L (13-56); Albumin, Serum 4.2 g/dL (3.2-5.0); Alkaline Phosphatase 59 U/L (45-117); Anion Gap 9 (5-15); BUN 19 mg/dL (7-18); BUN/Creat Ratio 22.7 RATIO (10-20); Calcium,Total 9.3 mg/dL (8.5-10.1); Chloride 102 mmol/L (98-107); Creatinine, Serum 0.84 mg/dL (0.55-1.02); EST Glomerular Filtration Rate 75 mL/min (>60); Est Glom Filt Rate - Afr Amer 91 mL/min (>60); Globulin 3.4 g/dL (2.2-4.2); Glucose 83 mg/dL (74-106); Potassium 4.1 mmol/L (3.5-5.1); Protein, Total 7.6 g/dL (6.4-8.2); Sodium Level 140 mmol/L (136-145)
== END | disposition home or self-care (01) ==
LOC: MTLAB 14:09
PROVIDERS: PCP Pediatrics; Referring Provider Internal Medicine Rheumatology; Visit Provider Internal Medicine Rheumatology
DX: M06.4 Inflammatory polyarthropathy (principal); M32.9 Systemic lupus erythematosus, unspecified; Z79.899 Other long term (current) drug therapy; M79.7 Fibromyalgia; M72.2 Plantar fascial fibromatosis; K22.70 Barrett's esophagus without dysplasia; G43.809 Other migraine, not intractable, without status migrainosus; N80.9 Endometriosis, unspecified
CPT/HCPCS: 36415; 80053

== ENCOUNTER → 2023-03-01 | Outpatient (CLI) | payer BC, SELFPAY ==
[2023-03-01 18:19] LABS: Absolute Lymphocyte Count 1.43 X10^3/uL (0.83-4.51); Absolute Neutrophil Count 8.3 X10^3/uL (2.0-7.7); Basophil# 0.07 X10^3/uL; Basophil% 0.7 % (0-1); Eosinophil# 0.09 X10^3/uL; Eosinophils% 0.9 % (0-5); Hematocrit 42.2 % (37-47); Hemoglobin 14.1 g/dL (12.0-15.0); Lymphocyte # 1.43 X10^3/ul (0.83-4.51); Lymphocyte % 13.8 % (19-41); Mean Corp Hgb Conc 33.4 g/dL (32-36); Mean Corpuscular Hgb 27.8 pg (27.0-32.0); Mean Corpuscular Volume 83.2 fL (81-99); Mean Platelet Vol. 9.9 fl (6.2-12.0); Monocyte# 0.46 X10^3/uL; Monocyte% 4.4 % (0-10); NRBC Flagged by Analyzer 0 % (0-5); Neutrophil % 79.7 % (47-70); Platelet Count 319 K/mm3 (150-450); RBC Distribution Width CV 13.5 % (11.6-14.6); RBC Distribution Width SD 40.6 fl (35.1-43.9); Red Blood Count 5.07 M/mm3 (4.2-5.4); White Blood Count 10.4 K/mm3 (4.4-11.0)
[2023-03-01 18:40] LABS: ALB/GLOB Ratio 1.1 RATIO (0.9-2.4); AST(SGOT) 23 U/L (15-37); Alanine Aminotransfer ALT/SGPT 47 U/L (13-56); Albumin, Serum 3.8 g/dL (3.2-5.0); Alkaline Phosphatase 65 U/L (45-117); Anion Gap 6 (5-15); BUN 24 mg/dL (7-18); Chloride 108 mmol/L (98-107); Creatinine, Serum 0.89 mg/dL (0.55-1.02); EST Glomerular Filtration Rate 70 mL/min (>60); Est Glom Filt Rate - Afr Amer 85 mL/min (>60); Globulin 3.4 g/dL (2.2-4.2); Glucose 111 mg/dL (74-106); Potassium 4.6 mmol/L (3.5-5.1); Protein, Total 7.2 g/dL (6.4-8.2); Sodium Level 140 mmol/L (136-145)
== END | disposition home or self-care (01) ==
LOC: MTLAB 15:39
PROVIDERS: PCP Pediatrics; Referring Provider Internal Medicine Rheumatology; Visit Provider Internal Medicine Rheumatology
DX: M06.4 Inflammatory polyarthropathy (principal); M32.9 Systemic lupus erythematosus, unspecified
CPT/HCPCS: 36415; 80053; 85025

== ENCOUNTER → 2023-07-05 | Outpatient (CLI) | payer BC, SELFPAY ==
--- NOTE | 2023-07-05 18:56 | CT_ITS ---
STUDY: CT CHEST WITH CONTRAST REASON FOR EXAM: Female, 53 years old. Concern for mediastinal adenopathy RADIATION DOSAGE (If Supplied By Facility): CTDIvol = ( 13.49 ) mGy, DLP = ( 586.86 ) mGycm TECHNIQUE: Transaxial imaging was performed following intravenous administration of IV 100mL Isovue-370. Individualized dose optimization techniques were used for this CT. COMPARISON: No relevant priors. FINDINGS: CHEST Small benign-appearing bilateral axillary lymph nodes. There is a 4.2 mm noncalcified nodule in the peripheral lateral aspect of the right lower lobe as seen on axial image #80. There is no demonstrated pleural abnormality. Normal heart and pericardium. There are multiple small lymph nodes within the mediastinum, which are normal in size and morphology most compatible with reactive lymph hyperplasia. Enlarged right hilar lymph node measuring 2 cm x 2.8 cm. Mild enlargement of the left outer lymph nodes. Normal unenhanced pulmonary arteries. Normal aorta arch and descending thoracic aorta. Normal osseous structures. There is no demonstrated abnormality of the visualized upper abdomen. CT/Chest WITH Contrast IMPRESSION: Enlarged bilateral hilar lymphadenopathy more prominent on the right side. Small mediastinal lymph nodes. 4.2 mm noncalcified nodule in the peripheral lateral aspect of the right lower lobe. Six-month follow-up recommended. Electronically Signed: Christiano Cartagena MD at 12:29 EDT ,
== END | disposition home or self-care (01) ==
LOC: CT 18:54
PROVIDERS: PCP Pediatrics; Referring Provider Internal Medicine Critical Care Medicine; Visit Provider Internal Medicine Critical Care Medicine
DX: D86.89 Sarcoidosis of other sites (principal)
CPT/HCPCS: 71260; Q9967

== ENCOUNTER → 2023-07-16 | Outpatient (CLI) | payer BC, SELFPAY ==
--- NOTE | 2023-07-19 07:09 | PFT ---
INTRODUCTION: The patient is a 53-year-old female who presents for pulmonary function studies secondary to a diagnosis of sarcoidosis. Respiratory therapy reported good patient effort. Bronchodilators were used during testing. INTERPRETATION: Forced expiration spirometry demonstrates no evidence of a large airways obstructive ventilatory defect. There was no significant response to aerosolized bronchodilators. Spirograms are of good quality and plateau normally. Body plethysmography was performed and revealed lung volumes to be within normal limits. Diffusing capacity by single breath CO was also within normal limits. IMPRESSION: Grossly normal pulmonary function studies.
== END | disposition home or self-care (01) ==
LOC: PSN 09:19
PROVIDERS: PCP Pediatrics; Referring Provider Internal Medicine Critical Care Medicine; Visit Provider Internal Medicine Critical Care Medicine
DX: D86.89 Sarcoidosis of other sites (principal)
CPT/HCPCS: 94060; 94726; 94729

== ENCOUNTER 2023-08-06 10:49 | Day surgery (SDC) | payer BC, SELFPAY ==
[2023-07-29 17:45] LABS: Prothrombin Time (Protime)PT. 13.6 SECONDS (11.7-14.9)
[2023-07-29 17:46] LABS: Partial Thromboplast Time 30.3 Seconds (24.1-36.2)
[2023-08-06 11:14] VITALS: BP 109/53; PULSE 74; RESP 14; TEMP 36.4; O2SAT 99; BMI 32.9
[2023-08-06] MEDS: Lactated Ringers 1,000 ML 15 ML IV (11:18)
--- NOTE | 2023-08-06 11:42 | PCM.HP.BLA ---
History and Physical Date of Admission: 08/06/23 Patient seen and examined prior to the procedure. There is been no significant change in patient's history or respiratory status. Patient understands that the role of this procedure is to get diagnostic tissue. was at the bedside and all questions were answered. They have agreed to proceed with the procedure as previously planned. 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 Patient's pulmonary function tests are within normal limits, so she would not require therapy from a pulmonary perspective. However, there is suggestion that the patient may have ocular findings, which would require therapy. Defer to [facility]. Patient does have significant mediastinal lymphadenopathy, so an EBUS procedure could be arranged for verification of sarcoidosis. If this is the case, this could be completed next Wednesday, August 06 at 1 PM. Patient would need coagulation studies ordered in preparation. Did go through the risks, benefits and alternatives of the EBUS procedure at this visit so this can be scheduled without an additional follow-up if requested by the [facility]. Await neurosarcoidosis recommendations. Potential EBUS if necessary. Okay to initiate therapy empirically from my perspective Plan Details Follow Up: 3 Months (CSM) HPI 1 M FU Details: Patient is a 53-year-old female, currently under the care of Dr. Barth, who presents for evaluation secondary to routine follow-up and recent test results. Since last visit, patient denies any ER visits, hospitalizations or prednisone burst. Patient does report that she has had some difficulty in arranging her initial visit with [facility] at the neurosarcoidosis clinic. Patient is not currently on any inhalers and has not had any subjective change in her overall condition. Patient states that she does have an endoscopy scheduled this week for evaluation of Cedillo's. This is a routine surveillance and she is not having additional symptoms at this time. Patient does state that she is to see the [facility] tomorrow for possible neurosarcoidosis evaluation. Patient is unaware of the time course following this intervention. Patient still has little to no respiratory symptoms at this time. Patient believes her vision is stable. Patient is not reporting any palpitations. Patient believes her lupus is at its baseline. Testing personally reviewed with the patient Complete PFT (07/16/2023): Grossly normal pulmonary function Studies (FVC 91%, FEV1 87%, TLC 98%, DLCO 89%) CT chest (07/05/2023): Enlarged bilateral hilar lymphadenopathy more prominent on the right side with a 4.2 mm noncalcified nodule in the peripheral aspect of the right lower lobe Intake Vital Signs 06/28/2306:45 07/28/2305:38 Height 5 ft 4 in 5 ft 4 in Weight: 87.997 kg BMI 33.3 BP 122/69 H Blood Pressure Location Rt brachial Position Sitting Respiration 18 Pulse 74 Pulse Source Monitor Temp 36.2 C L Temperature Source Temporal Artery Pulse Oximetry (%) 99 Oxygen Delivery Method room air Intake Visit Reasons: 1 M FU Coating Machine Operator Required: No DME Vendor: N/A Accompanied by: Self Is patient in pain?: No Allergies Sulfa (Sulfonamide Antibiotics) Adverse Reaction (Severe, Verified 07/28/23 07:19) Vomitingacetaminophen [From Vicodin] Adverse Reaction (Intermediate, Verified 07/28/23 07:19) Vomitingclarithromycin [From Biaxin] Adverse Reaction (Intermediate, Verified 07/28/23 07:19) dizziness, vomitingcodeine Adverse Reaction (Intermediate, Verified 07/28/23 07:19) Vomitinghydrocodone [From Vicodin] Adverse Reaction (Intermediate, Verified 07/28/23 07:19) Vomitinglevofloxacin [From Levaquin] Adverse Reaction (Intermediate, Verified 07/28/23 07:19) insomnia Medications bupropion HCl 150 mg tablet,12 hr sustained-release (Wellbutrin SR) 150 mg PO DAILY 06/21/23 [History Confirmed 07/28/23] cetirizine 10 mg tablet (Zyrtec) 10 mg PO DAILY PRN 06/21/23 [History Confirmed 07/28/23] ergocalciferol (vitamin D2) 1,250 mcg (50,000 unit) capsule 1,250 mcg PO QWEEK 06/21/23 [History Confirmed 07/28/23] ibuprofen 200 mg tablet 200 mg PO BID 06/21/23 [History Confirmed 07/28/23] multivitamin 1 tab PO DAILY 06/21/23 [History Confirmed 07/28/23] pantoprazole 40 mg tablet,delayed release (Protonix) 40 mg PO DAILY 06/21/23 [History Confirmed 07/28/23] rizatriptan 10 mg tablet (Maxalt) See Rx Instructions PO .COMPLEX 06/21/23 [History Confirmed 07/28/23] hydroxychloroquine 200 mg tablet (Plaquenil) 200 mg PO BID 07/28/23 [History Confirmed 07/28/23] PFSH Family History Father Cancer COPD (chronic obstructive pulmonary disease) Alcohol abuseMother Arthritis Heart disease Rheumatic feverSister HypertensionGrandfather Cancer CVA (cerebral vascular accident)Grandmother Diabetes CVA (cerebral vascular accident) Social History adopted: No household members: spouse Smoking Status: Never smoker Exam Const Constitutional: Positive conversant, cooperative, in no acute respiratory distress, healthy appearing, well developed, well nourished, good hygiene and obese Head Head: Yes normocephalic, Yes atraumatic and No cyanosis of lips/distal nose Eyes Eye: Positive clear conjunctiva; Negative nystagmus, scleral abnormality or cataract present Ears Ear: Positive hearing normal and external ears normal; Negative hard of hearing Nose Nose: Yes external nose normal, No nasal polyp and Yes septum normal Mouth Mouth: Positive oral mucosae normal, no lesions and good dentition; Negative oral thrush present or post nasal drip Mallampati Score: II: Mallampati Score Neck Neck: Positive normal visual inspection, full ROM and trachea midline; Negative lymphadenopathy or JVD Chest Wall Chest: Positive normal inspection of the chest and symmetric chest movement; Negative crepitus or tenderness Resp lung sounds: Positive clear to auscultation, good air exchange and normal expiratory time; Negative wheezes, wheeze present on forced exhalation, rhonchi, rales, dullness or use of accessory muscles Cardio Cardiac: Positive regular rate, regular rhythm, S1 normal and S2 normal; Negative murmur, rub or gallop GI GI: Positive normal to inspection, normal bowel sounds and obese; Negative distended, ascites or epigastric tenderness Musc Musculoskeletal: Positive steady gait; Negative using an assistive device for ambulation, kyphosis or scoliosis Skin Pulmonary Skin Exam: Positive intact; Negative lesion, rash, ulcers or erythema Pulses Pulse: Yes radial pulses present Extremities Extremities: Yes capillary refill normal, No clubbing, No cyanosis and No edema Neuro Neurologic: Yes no focal neuro deficits, Yes conversant, Yes cooperative, Yes normal cognition, Yes normal coordination, Yes normal concentration and Yes understands questions Lymph Lymphatic: No lymphadenopathy Psych Appearance: Positive grossly normal Mental Status: Positive mental status grossly normal Mood: Positive congruent mood Affect: Positive normal affect Assessment & Plan Assessment/Plan (1) Neurosarcoidosis: PLAN: Anticipate biopsy to evaluate for noncaseating granulomas and to rule out lymphoma and fungal etiologies.
--- NOTE | 2023-08-06 12:00 | ASPIG_PTH ---
PATIENT: BO BAJWA LOC: EN U#:[id number] AGE/SX: 53/F ROOM: RE08/06/[address]: Dr. Kash Sadler MD : 1970 BED: DIS: 08/06/2023 SPEC #: [id number] RECD: 08/06/23 13:49 STATUS: CLAIRE REPiero #: [id number] SCOTT: 08/06/23 12:[address]: Kash Sadler DEPT: CYTOLOGY RECD BY: Bipin Huber ENTERED: 08/06/23 13:51 SP TYPE: ASP OUT OTHR DR: Dr. Marie Barth MD Tissues: A - Lung, NOS B - Lung, NOS C - Lung, NOS D - Lung, NOS E - Lung, NOS F - Lung, NOS G - Lung, NOS H - Lung, NOS Procedures: FNA Specimen Adequacy Special Stain Group II Special Stain Group I Surgery Specimen Level IV AFB Stain (control) GMS Stain (control) Cytology Other HEADER OPERATION: Endobronchial ultrasound PRE-OP DIAGNOSIS: Neurosarcoidosis TISSUE SUBMITTED: A - EBUS, TBNA, site 7 #1, B - EBUS, TBNA, site 7 #2, C - EBUS, TBNA, site 7 #3, D - EBUS, TBNA, site 7 #4, E - EBUS, TBNA, site 7 #5, F - EBUS, TBNA, site 7 #6, G - EBUS, TBNA, site 7 #7, H - EBUS, TBNA, site 7 DIAGNOSIS CYTOLOGY A. EBUS, TBNA, site 7 #1 (smears): Predominantly respiratory epithelial cells. Negative for malignant cells. B. EBUS, TBNA, site 7 #2 (smears): A few lymphocytes are noted. Bloody specimen. Negative for granulomas or malignant cells. C. EBUS, TBNA, site 7 #3 (smears): Paucicellular specimen. Rare macrophages noted. Negative for malignant cells. D. EBUS, TBNA, site 7 #4 (smears): A few lymphocytes are noted. Bloody specimen. Negative for granulomas or malignant cells. E. EBUS, TBNA, site 7 #5 (smears): Numerous lymphocytes are noted. Numerous respiratory epithelioid cells are noted. Negative for granulomas or malignant cells. F. EBUS, TBNA, site 7 #6 (smears): Numerous lymphocytes are noted. Epithelioid cells consistent with granulomas are noted. A few giant cells are also noted. Numerous respiratory epithelial cells are noted. Negative for malignant cells. G. EBUS, TBNA, site 7 #7 (smears): Numerous lymphocytes are noted. Epithelioid cells consistent with granulomas are noted. A few giant cells are also noted. Numerous respiratory epithelial cells are noted. Negative for malignant cells. H. EBUS, TBNA, site 7 (cell block): Non-necrotizing granulomas are noted. Negative for malignancy. See comment. JUAN CARLOS:chadwick 08/10/2023 COMMENT The specimen is evaluated at the time of EBUS by Dr. Castillo. Rapid On-Site Evaluation: A. EBUS, TBNA, site 7 #1: Predominantly respiratory epithelial cells. Negative for malignant cells. B. EBUS, TBNA, site 7 #2: A few lymphocytes are noted. Bloody specimen. Negative for granulomas or malignant cells. C. EBUS, TBNA, site 7 #3: Paucicellular specimen. Rare macrophages noted. Negative for malignant cells. D. EBUS, TBNA, site 7 #4: A few lymphocytes are noted. Bloody specimen. Negative for granulomas or malignant cells. E. EBUS, TBNA, site 7 #5: Numerous lymphocytes are noted. Numerous respiratory epithelioid cells are noted. Negative for granulomas or malignant cells. F. EBUS, TBNA, site 7 #6: Numerous lymphocytes are noted. A few epithelioid cells consistent with granulomas are noted. Numerous respiratory epithelial cells are noted. Negative for malignant cells. G. EBUS, TBNA, site 7 #7: Numerous lymphocytes are noted. A few epithelioid cells consistent with granulomas are noted. Numerous respiratory epithelial cells are noted. Negative for malignant cells. H. Special stains for acid fast bacilli and fungi are negative for organisms; matched controls are appropriate. Flow cytometry study from [facility] shows no evidence of B-cell or T-cell lymphoma. The complete report is viewable in EMR. The findings are compatible with sarcoidosis in appropriate clinical setting. Case has been reviewed in consultation with Dr. Edgar who concurs with the above diagnosis. IDC:AM CYTOLOGY STUDY Slides are reviewed. CYTOLOGY GROSS A - Received labeled with the patient's name and and designated EBUS, TBNA, site 7 #1. The specimen consists of two stained smears for QUIQUE (Rapid On-Site Evaluation). B - Received labeled with the patient's name and and designated EBUS, TBNA, site 7 #2. The specimen consists of two stained smears for QUIQUE. C - Received labeled with the patient's name and and designated EBUS, TBNA, site 7 #3. The specimen consists of two stained smears for QUIQUE. D - Received labeled with the patient's name and and designated EBUS, TBNA, site 7 #4. The specimen consists of two stained smears for QUIQUE. E - Received labeled with the patient's name and and designated EBUS, TBNA, site 7 #5. The specimen consists of two stained smears for QUIQUE. F - Received labeled with the patient's name and and designated EBUS, TBNA, site 7 #6. The specimen consists of two stained smears for QUIQUE. G - Received labeled with the patient's name and and designated EBUS, TBNA, site 7 #7. The specimen consists of two stained smears for QUIQUE. H - Received in RPMI is 20 ml of pink, needle rinsed fluid labeled with the patient's name and and designated EBUS, TBNA, site 7. Half of the specimen is submitted for flow cytometry studies. The specimen is submitted for cell block preparation. / SJ:chadwick 08/06/2023 TC:5 CPT: 66530, 32031, 85771 x7, 03622 x2
[2023-08-06] MEDS: Lidocaine Jelly 2% 20 ML Syringe (URO-JET) 1 APPLIC (12:21)
[2023-08-06 13:16] VITALS: BP 107/59; BP 109/53; PULSE 74; RESP 16; TEMP 36.4; O2SAT 99
--- NOTE | 2023-08-06 13:19 | OP.BRONCH_ITS ---
Patient Name: Elva Salcedo Procedure Date: 08/06/2023 11:39 AM Date of : 1970 Age: 53 Procedure: Bronchoscopy Indications: Mediastinal adenopathy Providers: Kash Sadler MD Referring MD: Kash Sadler MD Complications: No immediate complications Procedure: Pre-Anesthesia Assessment: - Prior to the procedure, a History and Physical was performed, and patient medications and allergies were reviewed. The patient's tolerance of previous anesthesia was also reviewed. The risks and benefits of the procedure and the sedation options and risks were discussed with the patient. All questions were answered, and informed consent was obtained. Prior Anticoagulants: The patient has taken no previous anticoagulant or antiplatelet agents. ASA Grade Assessment: II - A patient with mild systemic disease. After reviewing the risks and benefits, the patient was deemed in satisfactory condition to undergo the procedure. - A History and Physical has been performed. The patient's medications, allergies and sensitivities have been reviewed. - The risks and benefits of the procedure and the sedation options and risks were discussed with the patient. All questions were answered and informed consent was obtained. After I obtained informed consent, the scope was passed under direct vision. Throughout the procedure, the patient's blood pressure, pulse, and oxygen saturations were monitored continuously. The bronchoscope was introduced through the mouth, via laryngeal mask airway and advanced to the tracheobronchial tree. The ultrasound bronchoscope was introduced through the mouth, via laryngeal mask airway and advanced to the tracheobronchial tree. The procedure was accomplished without difficulty. The patient tolerated the procedure well. Findings: The laryngeal mask airway is in good position. The vocal cords appear normal. The subglottic space is normal. The trachea is of normal caliber, but somewhat tortuous. The scott is sharp. The tracheobronchial tree was examined to at least the first subsegmental level. Bronchial mucosa was noted to have a nodular appearance, but anatomy are normal; there are no endobronchial lesions, and no secretions. The scope was withdrawn and replaced with the EBUS bronchoscope to accomplish the ultrasound examination. Lymph Nodes: An endobronchial ultrasound endoscope was utilized to systematically examine the subcarinal mediastinum (level 7) in order to assist with guiding the biopsy needle. Lymph node staging was performed via endobronchial ultrasound. - The 7 (subcarinal) node was 25 mm by EBUS. Lymph Nodes: An endobronchial ultrasound-guided transbronchial needle aspiration was performed using an Olympus EBUS-TBNA needle and sent for routine cytology, flow cytometry and histopathology examination. Specimens were obtained from the 7 (subcarinal) lymph nodes. 7 per node were performed. Rapid On-Site Evaluation (QUIQUE): Preliminary cytology was suggestive of non-necrotic granulomatous tissue (final results are pending) in the subcarinal mediastinum (level 7). Impression: - Mediastinal adenopathy - The airway examination showed scattered nodularity of the mucosa. - Endobronchial ultrasound was performed. - Systematic lymph node staging was performed. - A transbronchial needle aspiration was performed. - Rapid On-Site Evaluation (QUIQUE): Preliminary cytology was suggestive suggestive of non-necrotic granulomatous tissue in node level 7 (final results are pending). Recommendation: - The patient will be observed post-procedure, until all discharge criteria are met. - Await biopsy, cytology and lab results. - Follow up with bronchoscopist in one week. Procedure Code(s): --- Professional --- 80421, Bronchoscopy, rigid or flexible, including fluoroscopic guidance, when performed; with endobronchial ultrasound (EBUS) guided transtracheal and/or transbronchial sampling (eg, aspiration[s]/biopsy[ies]), one or two mediastinal and/or hilar lymph node stations or structures 73138, Bronchoscopy, rigid or flexible, including fluoroscopic guidance, when performed; with transendoscopic endobronchial ultrasound (EBUS) during bronchoscopic diagnostic or therapeutic intervention(s) for peripheral lesion(s) (List separately in addition to code for primary procedure[s]) Diagnosis Code(s): --- Professional --- R59.0, Localized enlarged lymph nodes R09.89, Other specified symptoms and signs involving the circulatory and respiratory systems CPT copyright 2021 [employer]. All rights reserved. The codes documented in this report are preliminary and upon forklift truck operator review may be revised to meet current compliance requirements. MD Kash Singleton MD 08/06/2023 1:19:06 PM This report has been signed electronically. Number of Addenda: 0 Note Initiated On: 08/06/2023 11:39 AM
[2023-08-06 13:25] LABS: Cytology, Washings SEE PATHOLOGY REPORT
[2023-08-06 13:30] VITALS: BP 109/53; BP 115/58; PULSE 78; RESP 16; O2SAT 97
[2023-08-06 13:36] VITALS: BP 109/53; BP 113/65; PULSE 71; RESP 16; O2SAT 100
[2023-08-06 13:54] VITALS: BP 109/53
== END 2023-08-06 14:38 | disposition home or self-care (01) ==
LOC: EN 10:50 → AC 10:50
PROVIDERS: PCP Pediatrics; Referring Provider Internal Medicine Critical Care Medicine; Visit Provider Internal Medicine Critical Care Medicine
PROC: BB4BZZZ Ultrasonography of Pleura (ICD-10-PCS; CPT 31652; principal; 2023-08-06 11:30)
DX: D86.1 Sarcoidosis of lymph nodes (principal)
CPT/HCPCS: 31652; 31654; 36415; 85610; 85730; 88161; 88172; 88305; 88312; 88313; J7120; J2405

== ENCOUNTER → 2023-08-23 | Outpatient (CLI) | payer BC, SELFPAY ==
[2023-08-23 17:41] LABS: Absolute Lymphocyte Count 2.29 X10^3/uL (0.83-4.51); Absolute Neutrophil Count 4.4 X10^3/uL (2.0-7.7); Basophil# 0.12 X10^3/uL; Basophil% 1.6 % (0-1); Eosinophil# 0.39 X10^3/uL; Hematocrit 47.4 % (37-47); Hemoglobin 15.5 g/dL (12.0-15.0); Lymphocyte # 2.29 X10^3/ul (0.83-4.51); Lymphocyte % 29.6 % (19-41); Mean Corp Hgb Conc 32.7 g/dL (32-36); Mean Corpuscular Hgb 27.5 pg (27.0-32.0); Mean Platelet Vol. 10.1 fl (6.2-12.0); Monocyte# 0.56 X10^3/uL; Monocyte% 7.2 % (0-10); NRBC Flagged by Analyzer 0 % (0-5); Neutrophil # 4.35 X10^3/uL (2.7-7.7); Neutrophil % 56.2 % (47-70); Platelet Count 299 K/mm3 (150-450); RBC Distribution Width CV 13.7 % (11.6-14.6); Red Blood Count 5.64 M/mm3 (4.2-5.4); White Blood Count 7.7 K/mm3 (4.4-11.0)
[2023-08-23 18:18] LABS: ALB/GLOB Ratio 1.1 RATIO (0.9-2.4); AST(SGOT) 28 U/L (15-37); Alanine Aminotransfer ALT/SGPT 46 U/L (13-56); Albumin, Serum 4.3 g/dL (3.2-5.0); Alkaline Phosphatase 71 U/L (45-117); Anion Gap 4 (5-15); BUN 16 mg/dL (7-18); BUN/Creat Ratio 20.1 RATIO (10-20); Calcium,Total 9.1 mg/dL (8.5-10.1); Chloride 106 mmol/L (98-107); EST Glomerular Filtration Rate 80 mL/min (>60); Est Glom Filt Rate - Afr Amer 96 mL/min (>60); Globulin 3.9 g/dL (2.2-4.2); Glucose 79 mg/dL (74-106); Potassium 3.8 mmol/L (3.5-5.1); Protein, Total 8.2 g/dL (6.4-8.2); Sodium Level 138 mmol/L (136-145)
[2023-08-23 18:29] LABS: Color, Urine Yellow (Yellow); Glucose, Dipstick Normal (Normal); Ketone-Dipstick Negative (Negative); Leukocyte Esterase-Dipstick 500 /ul (Negative); Nitrite-Dipstick Negative (Negative); Occult Blood-Urine Negative /ul (Negative); Protein-Dipstick Negative (Negative); Urine Bilirubin Dipstick Negative (Negative); Urine Clarity Clear (Clear); Urine Urobilinogen Normal (Normal)
[2023-08-23 18:34] LABS: Creatinine, Urine (random) < 13.00 mg/dL (NO RANGE EST.); Protein, Urine (Random) < 6.0 mg/dL (<11.9)
[2023-08-25 12:09] LABS: Anti-dsDNA Ab <1 IU/mL (0-9)
[2023-08-26 05:07] LABS: Complement C3 215 mg/dL (82-167)
== END | disposition home or self-care (01) ==
LOC: MTLAB 16:39
PROVIDERS: PCP Pediatrics; Referring Provider Internal Medicine Rheumatology; Visit Provider Internal Medicine Rheumatology
DX: M06.4 Inflammatory polyarthropathy (principal); M32.9 Systemic lupus erythematosus, unspecified; Z79.899 Other long term (current) drug therapy; M79.7 Fibromyalgia
CPT/HCPCS: 36415; 80053; 81002; 82570; 84156; 85025; 86160; 86225

== ENCOUNTER → 2024-12-22 | Outpatient (CLI) | payer BC, SELFPAY ==
[2024-12-22 12:49] LABS: Erythrocyte Sedimentation Rate 2 mm/hr (0-30)
[2024-12-22 12:52] LABS: Absolute Lymphocyte Count 1.74 X10^3/uL (0.83-4.51); Absolute Neutrophil Count 5.3 X10^3/uL (2.0-7.7); Basophil# 0.11 X10^3/uL; Basophil% 1.3 % (0-1); Eosinophil# 0.41 X10^3/uL; Hematocrit 42.7 % (37-47); Hemoglobin 14.1 g/dL (12.0-15.0); Lymphocyte # 1.74 X10^3/ul (0.83-4.51); Lymphocyte % 21.3 % (19-41); Mean Corpuscular Hgb 28.3 pg (27.0-32.0); Mean Corpuscular Volume 85.7 fL (81-99); Mean Platelet Vol. 9.8 fl (6.2-12.0); Monocyte# 0.63 X10^3/uL; Monocyte% 7.7 % (0-10); NRBC Flagged by Analyzer 0 % (0-5); Neutrophil # 5.25 X10^3/uL (2.7-7.7); Neutrophil % 64.3 % (47-70); Platelet Count 313 K/mm3 (150-450); RBC Distribution Width CV 13.7 % (11.6-14.6); RBC Distribution Width SD 42.6 fl (35.1-43.9); Red Blood Count 4.98 M/mm3 (4.2-5.4); White Blood Count 8.2 K/mm3 (4.4-11.0)
[2024-12-22 13:31] LABS: ALB/GLOB Ratio 1.5 RATIO (0.9-2.4); AST(SGOT) 29 U/L (<=31); Alanine Aminotransfer ALT/SGPT 40 U/L (<=34); Albumin, Serum 4.3 g/dL (3.5-5.0); Alkaline Phosphatase 68 U/L (35-104); Anion Gap 11 (5-15); BUN 21 mg/dL (4-19); BUN/Creat Ratio 22.4 RATIO (10-20); Calcium,Total 9.4 mg/dL (7.6-11.0); Carbon Dioxide 26.9 mmol/L (21.0-32.0); Chloride 102 mmol/L (98-108); Creatinine, Serum 0.92 mg/dL (0.70-1.20); EST Glomerular Filtration Rate 74 (>60); Globulin 2.8 g/dL (2.2-4.2); Glucose 50 mg/dL (70-99); Potassium 3.8 mmol/L (3.3-5.1); Protein, Total 7.2 g/dL (5.9-8.4); Sodium Level 140 mmol/L (133-145); Total Bilirubin 0.37 mg/dL (0.00-1.30)
[2024-12-22 14:22] LABS: CRP < 3.00 mg/L (0.0-3.0)
== END | disposition home or self-care (01) ==
LOC: MTLAB 09:39
PROVIDERS: PCP Pediatrics; Referring Provider Internal Medicine Rheumatology; Visit Provider Internal Medicine Rheumatology
DX: M06.4 Inflammatory polyarthropathy (principal); M32.9 Systemic lupus erythematosus, unspecified; D86.9 Sarcoidosis, unspecified; Z79.899 Other long term (current) drug therapy; M79.7 Fibromyalgia
CPT/HCPCS: 36415; 80053; 85025; 85652; 86140

== ENCOUNTER → 2025-01-27 | Outpatient (CLI) | payer BC, SELFPAY ==
[2025-01-27 11:32] LABS: ALB/GLOB Ratio 1.4 RATIO (0.9-2.4); AST(SGOT) 27 U/L (<=31); Alanine Aminotransfer ALT/SGPT 34 U/L (<=34); Albumin, Serum 4.2 g/dL (3.5-5.0); Alkaline Phosphatase 62 U/L (35-104); Anion Gap 9 (5-15); BUN 19 mg/dL (4-19); BUN/Creat Ratio 23.2 RATIO (10-20); Calcium,Total 9.4 mg/dL (7.6-11.0); Carbon Dioxide 27.8 mmol/L (21.0-32.0); Chloride 101 mmol/L (98-108); Creatinine, Serum 0.83 mg/dL (0.70-1.20); EST Glomerular Filtration Rate 83 (>60); Globulin 2.9 g/dL (2.2-4.2); Glucose 85 mg/dL (70-99); Potassium 4.3 mmol/L (3.3-5.1); Protein, Total 7.1 g/dL (5.9-8.4); Sodium Level 138 mmol/L (133-145); Total Bilirubin 0.34 mg/dL (0.00-1.30)
== END | disposition home or self-care (01) ==
LOC: LAB 10:19
PROVIDERS: PCP Pediatrics; Referring Provider Internal Medicine Rheumatology; Visit Provider Internal Medicine Rheumatology
DX: M06.4 Inflammatory polyarthropathy (principal); M32.9 Systemic lupus erythematosus, unspecified; D86.9 Sarcoidosis, unspecified; Z79.899 Other long term (current) drug therapy; M79.7 Fibromyalgia
CPT/HCPCS: 36415; 80053

== ENCOUNTER → 2025-04-27 | Outpatient (CLI) | payer BC, SELFPAY ==
[2025-04-27 12:13] LABS: Hematocrit 41.9 % (37-47); Hemoglobin 14.2 g/dL (12.0-15.0); Immature Granulocytes Count 0.040 X10^3/uL (0.0-0.0); Mean Corp Hgb Conc 33.9 g/dL (32-36); Mean Corpuscular Volume 84.3 fL (81-99); Mean Platelet Vol. 9.7 fl (6.2-12.0); NRBC Flagged by Analyzer 0 % (0-5); Platelet Count 306 K/mm3 (150-450); RBC Distribution Width CV 13.4 % (11.6-14.6); RBC Distribution Width SD 41.0 fl (35.1-43.9); Red Blood Count 4.97 M/mm3 (4.2-5.4); White Blood Count 9.0 K/mm3 (4.4-11.0)
[2025-04-27 12:49] LABS: AST(SGOT) 26 U/L (<=31); Alanine Aminotransfer ALT/SGPT 36 U/L (<=34); Albumin, Serum 4.3 g/dL (3.5-5.0); Alkaline Phosphatase 69 U/L (35-104); Anion Gap 10 (5-15); BUN 21 mg/dL (4-19); BUN/Creat Ratio 25.1 RATIO (10-20); Calcium,Total 9.6 mg/dL (7.6-11.0); Carbon Dioxide 28.3 mmol/L (21.0-32.0); Chloride 102 mmol/L (98-108); Globulin 2.8 g/dL (2.2-4.2); Glucose 93 mg/dL (70-99); Potassium 3.9 mmol/L (3.3-5.1)
== END | disposition home or self-care (01) ==
LOC: MTLAB 11:10
PROVIDERS: PCP Pediatrics; Referring Provider Internal Medicine Rheumatology; Visit Provider Internal Medicine Rheumatology
DX: M06.4 Inflammatory polyarthropathy (principal); M32.9 Systemic lupus erythematosus, unspecified; D86.9 Sarcoidosis, unspecified; Z79.899 Other long term (current) drug therapy; M79.7 Fibromyalgia
CPT/HCPCS: 36415; 80053; 85025

== ENCOUNTER → 2025-07-05 | Outpatient (CLI) | payer BC, SELFPAY ==
[2025-07-05 10:44] LABS: Hematocrit 41.7 % (37-47); Hemoglobin 14.4 g/dL (12.0-15.0); Immature Granulocytes Count 0.040 X10^3/uL (0.0-0.0); Mean Corp Hgb Conc 34.5 g/dL (32-36); Mean Corpuscular Volume 83.6 fL (81-99); Mean Platelet Vol. 10.0 fl (6.2-12.0); NRBC Flagged by Analyzer 0 % (0-5); Platelet Count 325 K/mm3 (150-450); RBC Distribution Width CV 13.3 % (11.6-14.6); RBC Distribution Width SD 39.8 fl (35.1-43.9); Red Blood Count 4.99 M/mm3 (4.2-5.4); White Blood Count 8.5 K/mm3 (4.4-11.0)
[2025-07-05 10:46] LABS: AST(SGOT) 26 U/L (<=31); Alanine Aminotransfer ALT/SGPT 40 U/L (<=34); Albumin, Serum 4.3 g/dL (3.5-5.0); Alkaline Phosphatase 63 U/L (35-104); Anion Gap 11 (5-15); BUN 19 mg/dL (4-19); BUN/Creat Ratio 23.9 RATIO (10-20); Calcium,Total 9.2 mg/dL (7.6-11.0); Carbon Dioxide 25.8 mmol/L (21.0-32.0); Chloride 103 mmol/L (98-108); Globulin 2.8 g/dL (2.2-4.2); Glucose 77 mg/dL (70-99); Potassium 4.0 mmol/L (3.3-5.1)
== END | disposition home or self-care (01) ==
LOC: MTLAB 08:30
PROVIDERS: PCP Pediatrics; Referring Provider Internal Medicine Rheumatology; Visit Provider Internal Medicine Rheumatology
DX: M06.4 Inflammatory polyarthropathy (principal); M32.9 Systemic lupus erythematosus, unspecified; D86.9 Sarcoidosis, unspecified; Z79.899 Other long term (current) drug therapy; M79.7 Fibromyalgia
CPT/HCPCS: 36415; 80053; 85025